=== PATIENT | female | born 1960 | race Caucasian/White ===

== ENCOUNTER 2016-04-25 17:32 | Emergency (ER) | payer OTHER, MEDICARE ==
[~2016-04-25] VITALS: Ht 148.6 cm; Wt 64.4 kg
[~2016-04-25 17:32] MED LIST: ALCLOMETASONE D TOP; AMOXIL500 MG PO; ANTI DANDRUFF TOP; ARISTOCORT OINT15 GM TOP; BIAXIN FILMTAB500 MG PO; CLOPIDOGREL75 M1 PO; DESENEX21 TOP; DOVONEX 0.005%60 GM TOP; ECOTRIN325 MG PO; FIBER-LAX625 MG PO; KETOCONAZOLE2% TOP; LEVOTHYROXIN0.075 MG PO; LEVOTHYROXINE0.1 MG PO; LISINOPRIL20 MG PO; LITHIUM CARBON300 M3 PO; LOPERAMIDE2 MG PO; LOPRESSOR 25MG25 MG PO; OMEPRAZOLE D/R20 MG PO; PERIDEX 0.12% OR1 ML PO; QUETIAPINE FUM300 MG PO; SEROQUEL200 MG PO; STOOL CULTURE; STRESS FORMULA1 TA1 PO; TRIAMCINOL0.1 %/453 TOP; VITAMIN A & D1 OIN TOP; ZINC OXIDE 10% TOP; ZOFRAN4 M1 SL; [UNRECOGNIZED DRUG - CODE] TOP; [UNRECOGNIZED DRUG - OTHER] TOP
--- NOTE | 2016-04-25 18:54 | ED GI/GU/ABDOMINAL COMPLAINT ---
History of Present Illness General Chief Complaint: Abdominal Pain/Flank Pain Stated Complaint: LEFT SIDE ABD PAIN Source: patient, family, old records Exam Limitations: poor historian Vital Signs & Intake/Output Vital Signs & Intake/Output Vital Signs Date Time Temp Pulse Resp B/P Pulse O2 O2 Flow FiO2 Ox Delivery Rate 04/25 2126 97.1 84 132/72 99 04/25 1930 Room Air 04/25 1739 98.8 82 18 148/74 98 Room Air ED Intake and Output 04/26 0000 04/25 1200 Intake Total 5 Output Total Balance 5 Intake, Oral 5 Patient 142 lb Weight Allergies Coded Allergies: NO KNOWN ALLERGIES (07/18/15) Reconcile Medications Amoxicillin (Amoxil) 500 MG CAP 4 CAP PO AD 1 HOUR PRIOR TO DENTAL APPT ( Reported) Aspirin (Ecotrin) 325 MG ECT 1 TAB PO DAILY HEART/BLOOD (Reported) Calcium Polycarbophil (Fiber-Lax) (Unknown Strength) TAB (Unknown Dose) PO BID GI (Reported) Calcium Undecylenate (Caldesene) 10% POW 1 APPL TOP BID SKIN (Reported) Chlorhexidine Gluconate (Peridex 0.12% Oral Rinse 480 Ml) 1 ML BOT 15 ML PO BID DENTITION (Reported) RINSE AND SPIT IN THE am AND pm AFTER BURSHING TEETH Clopidogrel Bisulfate (Clopidogrel) 75 MG TABLET 1 TAB PO DAILY BLOOD THINNER (Reported) Ketoconazole 2% CRE 1 FRANCHESCA TOP BID PRN PSORIASIS (Reported) Levothyroxine Sodium 0.075 MG TAB 1 TAB PO DAILY THYROID (Reported) Lisinopril 20 MG TABLET 1 TAB PO DAILY BP (Reported) [place] Carbonate ([place] Carbonate 300MG Tab.) 300 MG CAPSULE 1 CAP PO BID MENTAL HEALTH (Reported) Loperamide Hydrochloride (Loperamide) 2 MG TAB 1 CAP PO 4 TIMES/DAY PRN DIARRHEA (Reported) Metoprolol Tartrate (Lopressor) 25 MG TABLET 1 TAB PO BID HEART/BP (Reported) Miconazole Nitrate (Desenex) 2% POW 1 APPL TOP DAILY IN BETWEEN TOES BOTH FEET (Reported) [id number] (Stress Formula) 1 TAB TAB 1 TAB PO DAILY SUPPLEMENT (Reported ) [NONYX] 1 FRAN[place]ES[place] TOP DAILY NAIL FUNGUS (Reported) Omeprazole 20 MG ECC 1 CAP PO DAILY GI (Reported) Quetiapine Fumarate (Seroquel) 200 MG TAB 1 TAB PO QAM MENTAL HEALTH ( Reported) Quetiapine Fumarate 300 MG TAB 1 TAB PO AT BEDTIME MENTAL HEALTH (Reported) Selenium Sulfide (Anti-Dandruff) 207 ML SHA 1 FRAN[place]ES[place] TOP DAILY SCALP - DANDRUFF (Reported) Triamcinolone Acetonide (Triamcinolone 0.1% Cream 453 Gm) 0.5 % CREAM..G. 1 [place] TOP BIDP PRN PSORIASIS (Reported) apply to affected area(s) Triamcinolone Acetonide (Aristocort Oint. 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 Triage Nurses Notes Reviewed? yes ? N Is pt currently ? No HPI: Patient is a 55-year-old female presents complaining of left-sided abdominal pain for the past 2 days. Pain is moderate, no exacerbating or alleviating factors. Patient is unable to describe the pain. Patient has not taken any medication for her symptoms. Last bowel movement was today and normal. Denies urinary symptoms, nausea, vomiting, fevers, chills (IGNACIO DANIEL) Past History Travel History Traveled to [place] past 21 day No Medical History Any Pertinent Medical History? 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 No (IGNACIO DANIEL) Review of Systems Review of Systems Constitutional: Denies: chills, fever. EENTM: Reports: no symptoms. Respiratory: Denies: cough, short of breath. Cardiovascular: Denies: chest pain. GI: Reports: see HPI. Genitourinary: Reports: no symptoms. Musculoskeletal: Denies: back pain. Skin: Reports: no symptoms. Neurological/Psychological: Reports: no symptoms. Hematologic/Endocrine: Reports: no symptoms. Immunologic/Allergic: Reports: no symptoms. (IGNACIO DANIEL) Physical Exam Physical Exam General Appearance: well developed/nourished, alert, awake Head: atraumatic, normal appearance Eyes: Bilateral: normal appearance, PERRL, EOMI. Ears, Nose, Throat, Mouth: hearing grossly normal, moist mucous membrane Neck: normal inspection, supple, full range of motion Respiratory: normal breath sounds, chest non-tender, no respiratory distress, lungs clear Cardiovascular: regular rate/rhythm Gastrointestinal: normal bowel sounds, soft, mild left sided abdominal tenderness Back: normal inspection, normal range of motion Extremities: normal range of motion Neurologic/Psych: no motor/sensory deficits, awake, alert, oriented x 3, normal gait, normal mood/affect Skin: intact, normal color, warm/dry Core Measures ACS in differential dx? Yes ASA ordered for poss ACS? No-ACS ruled out Severe Sepsis Present: No Septic Shock Present: No (IGNACIO DANIEL) Progress Differential Diagnosis: AAA, AMI, appendicitis, biliary colic, cholecystitis, diverticulitis, gastritis, hepatitis, hernia, ischemic bowel, inflamm bowel dis, kidney stone, ovarian cyst, ovarian torsion, pancreatitis, PUD/GERD, perforated viscous, SBO, UTI/pyelo, URINARY RETENTION, CONSTIPATION Plan of Care: Orders Procedure Date/time Status Add-on Test (ER Only) 04/25 1952 Active TROPONIN LEVEL 04/25 1938 Complete URINALYSIS 04/25 1923 Complete LIPASE 04/25 1923 Complete LITHIUM 04/25 1923 Complete COMPREHENSIVE METABOLIC PANEL 04/25 1923 Complete CBC WITHOUT DIFFERENTIAL 04/25 1923 Complete AMYLASE 04/25 1923 Complete EKG 04/25 1923 Active Laboratory Tests 04/25/162137: Urine Color YEL, Urine Clarity CLEAR, Urine pH 7.0, Ur Specific [place] <= 1.005 , Urine Protein NEG, Urine Ketones NEG, Urine Nitrite NEG, Urine Bilirubin NEG, Urine Urobilinogen 0.2, Ur Leukocyte Esterase NEG, Ur Microscopic EXAM NOT REQUIRED, Urine Hemoglobin NEG, Urine Glucose NEG 04/25/161938: Anion Gap 14, Estimated GFR > 60, BUN/Creatinine Ratio 16.7, Glucose 94, Calcium 10.8 H, Total Bilirubin 0.5, AST 23, ALT 32, Alkaline Phosphatase 82, Troponin I < 0.01, Total Protein 7.3, Albumin 4.3, Globulin 3.0, Albumin/Globulin Ratio 1.4, Amylase 80, Lipase 124, CBC w Diff NO MAN DIFF REQ, RBC 4.34, MCV 96.0, MCH 31.6 H, RDW 14.6 H, MPV 8.5, Gran % 55.4, Lymphocytes % 30.8, Monocytes % 9.7 H, Eosinophils % 3.4, Basophils % 0.7, Absolute Granulocytes 4.1, Absolute Lymphocytes 2.3, Absolute Monocytes 0.7 H, Absolute Eosinophils 0.3, Absolute Basophils 0.1, PUBS MCHC 33.0, [place] 0.6 2114: Results of labs and imaging discussed with the patient, her mother, her detention staff member. Patient to attempt to urinate on her own, if unable to will have nurse place a steele catheter given her significant bladder distention on ct scan. 2124: Patient voided 1200cc of urine on her own. (GAVINO GA,IGNACIO) Diagnostic Imaging: Viewed by Me: CT Scan. Discussed w/RAD: CT Scan. Radiology Impression: PATIENT: EDER ELMORE PRESENT AGE: 55 PATIENT ACCOUNT NO: [id number] : 60 LOCATION: [facility] ORDERING PHYSICIAN: IGNACIO GA SERVICE DATE: 04/25/16 EXAM TYPE: CAT - CT ABD & PELVIS W IV CONTRAST EXAMINATION: CT ABDOMEN AND PELVIS WITH CONTRAST CLINICAL INFORMATION: Intra-abdominal infection. Left-sided abdominal pain and tenderness. COMPARISON: CT scan abdomen and pelvis 11/09/2014 TECHNIQUE: Multidetector volumetric imaging was performed of the abdomen and pelvis before and after the IV administration of 95 mL of Optiray 320 intravenous contrast. Sagittal and coronal reformatted images were obtained on the technologist's workstation. DLP: 323.39 mGy-cm. FINDINGS: LUNG BASES: The visualized lung bases are unremarkable. LIVER, GALLBLADDER, AND BILIARY TREE: The liver is normal in size, shape, and attenuation. No focal hepatic lesion or biliary ductal dilatation is present. Status post cholecystectomy with dilatation of the extrahepatic and intrahepatic bile ducts. No calcified stone within the bile ducts. PANCREAS: Unremarkable. SPLEEN: Unremarkable. ADRENAL GLANDS: Unremarkable. KIDNEYS AND URETERS: The kidneys are normal in size, shape , and attenuation. No hydronephrosis, hydroureter, or calculi seen. The tiny calculi seen in the left kidney on the prior CAT scan of 11/09/2014 not apparent on this exam which uses IV contrast. No perinephric stranding. BLADDER: The bladder is full. The dome of the bladder reached the level of the umbilicus. Bladder measures 9.5 x 12 x 18 cm. No calcified stone within the bladder. GASTROINTESTINAL TRACT: No acute change of the bowel. No bowel obstruction. No bowel wall thickening or edema. Large volume of stool throughout the colon. No diverticula. The appendix is normal. The small bowel loops are unremarkable ABDOMINAL WALL: No significant hernia is appreciated. LYMPH NODES: Normal. VASCULAR: Unremarkable. PELVIC VISCERA: Uterus is anteverted. No adnexal abnormality. OSSEOUS STRUCTURES: Unremarkable. IMPRESSION: No acute abnormality CT scan abdomen and pelvis. DICTATED BY: DAVE STRONG MD DATE/TIME DICTATED:07/07 ASSOCIATE PROFESSOR OF GEOGRAPHY:TARUN DATE/TIME TRANSCRIBED:04/25/162048 CONFIDENTIAL, DO NOT COPY WITHOUT APPROPRIATE AUTHORIZATION. <Electronically signed in Other Vendor System> SIGNED BY: DAVE STRONG MD 04/25/162056 Initial ED EKG: normal axis, normal p-waves, normal sinus rhythm, RBBB, no ST T wave changes Prior EKG: changed (rbbb) (IGNACIO DANIEL) Departure Departure Time of Disposition: 2222 Disposition: HOME OR SELF CARE Condition: Stable Clinical Impression Primary Impression: Urinary retention Secondary Impressions: Constipation Qualifiers: Constipation type: unspecified constipation type Qualified Code: K59.00 - Constipation, unspecified Referrals: LUIS ANNA,YESSENIA SERRANO MD,ROHITH (PCP/Family) Additional Instructions: Follow up with Dr. Serrano and Dr. Sams(urologist) within 1 week. Call in the morning for appointments. Return to the ER if fevers, increasing abdominal pain, unable to urinate or worsening of symptoms. Departure Forms: Customer Survey General Discharge Information (IGNACIO DANIEL) PA/CELLARS SUPERVISOR Co-Sign Statement Statement: ED Attending supervision documentation- [] I saw and evaluated the patient. I have also reviewed all the pertinent lab results and diagnostic results. I agree with the findings and the plan of care as documented in the PA's/CELLARS SUPERVISOR's documentation. [X] I have reviewed the ED Record and agree with the PA's/CELLARS SUPERVISOR's documentation. [] Additions or exceptions (if any) to the PAs/CELLARS SUPERVISOR's note and plan are summarized below: [] (DORIS ANNA,TRAVON Walsh)
[2016-04-25 19:45] LABS: ABSOLUTE BASOPHIL COUNT 0.1 /CUMM (0.0-0.2); ABSOLUTE EOSINOPHIL COUNT 0.3 /CUMM (0.0-0.7); ABSOLUTE GRANULOCYTE CT 4.1 /CUMM (1.4-6.5); ABSOLUTE LYMPH COUNT 2.3 /CUMM (1.2-3.4); ABSOLUTE MONOCYTE COUNT 0.7 /CUMM (0.10-0.60); BASOPHIL % 0.7 % (0.0-2.0); EOSINOPHIL % 3.4 % (0-5); GRANULOCYTE % 55.4 % (42.2-75.2); HEMATOCRIT 41.6 % (37-47); MEAN CORPUSCULAR HGB 31.6 PG (27.0-31.0); MEAN PLATELET VOLUME 8.5 FL (7.4-10.4); PLATELET COUNT 225 /CUMM (130-400); RBC DISTRIBUTION WIDTH 14.6 % (11.5-14.5); RED BLOOD CELL CT 4.34 /CUMM (4.20-5.40); WHITE BLOOD CELL COUNT 7.4 /CUMM (4.8-10.8)
[2016-04-25 20:06] LABS: LITHIUM 0.6 mmol/L (0.6-1.2)
--- NOTE | 2016-04-25 20:57 | CT SCAN REPORT ---
EXAMINATION: CT ABDOMEN AND PELVIS WITH CONTRAST CLINICAL INFORMATION: Intra-abdominal infection. Left-sided abdominal pain and tenderness. COMPARISON: CT scan abdomen and pelvis 11/09/2014 TECHNIQUE: Multidetector volumetric imaging was performed of the abdomen and pelvis before and after the IV administration of 95 mL of Optiray 320 intravenous contrast. Sagittal and coronal reformatted images were obtained on the technologist's workstation. DLP: 323.39 mGy-cm. FINDINGS: LUNG BASES: The visualized lung bases are unremarkable. LIVER, GALLBLADDER, AND BILIARY TREE: The liver is normal in size, shape, and attenuation. No focal hepatic lesion or biliary ductal dilatation is present. Status post cholecystectomy with dilatation of the extrahepatic and intrahepatic bile ducts. No calcified stone within the bile ducts. PANCREAS: Unremarkable. SPLEEN: Unremarkable. ADRENAL GLANDS: Unremarkable. KIDNEYS AND URETERS: The kidneys are normal in size, shape, and attenuation. No hydronephrosis, hydroureter, or calculi seen. The tiny calculi seen in the left kidney on the prior CAT scan of 11/09/2014 not apparent on this exam which uses IV contrast. No perinephric stranding. BLADDER: The bladder is full. The dome of the bladder reached the level of the umbilicus. Bladder measures 9.5 x 12 x 18 cm. No calcified stone within the bladder. GASTROINTESTINAL TRACT: No acute change of the bowel. No bowel obstruction. No bowel wall thickening or edema. Large volume of stool throughout the colon. No diverticula. The appendix is normal. The small bowel loops are unremarkable ABDOMINAL WALL: No significant hernia is appreciated. LYMPH NODES: Normal. VASCULAR: Unremarkable. PELVIC VISCERA: Uterus is anteverted. No adnexal abnormality. OSSEOUS STRUCTURES: Unremarkable. IMPRESSION: No acute abnormality CT scan abdomen and pelvis.
[2016-04-25 21:27] VITALS: BP 132/72
== END 2016-04-25 22:26 ==
LOC: ERH 17:32
PROVIDERS: Physician Assistant
DX: R33.9 Retention of urine, unspecified (principal); K59.00 Constipation, unspecified
CPT/HCPCS: 74177; 81003; 93005; 93010